=== PATIENT | male | born 2000 | race African-American/Black ===

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

== ENCOUNTER 2020-02-19 11:33 | Emergency (ER) | payer SELFPAY ==
--- NOTE | 2020-02-19 12:03 | RAD ---
Exam: XR Foot Rt 3 View STANDARD HISTORY: Injury to right foot. COMPARISON: None FINDINGS: No acute fracture, dislocation, or other acute osseous abnormality is identified. Dressing material overlies the dorsal lateral aspect right foot with minimal subcutaneous soft tissue swelling identified. No radiopaque foreign body is identified. IMPRESSION: No acute osseous abnormality is identified.
[2020-02-19] MEDS ORDERED: TETANUS, DIPHTHERIA TOX,ADULT (TDVAX) 0.5 ML VIAL IM ONE (12:04)
[2020-02-19] MEDS ORDERED: Lidocaine 1% (PF) 30 ML VIAL ONE (12:08)
[2020-02-19] MEDS ORDERED: Bacitracin 1 PK ONE (12:47)
== END 2020-02-19 13:25 | disposition home or self-care (01) ==
LOC: NAV ERS 11:33
DX: S91.311A Laceration without foreign body, right foot, initial encounter (principal); F17.290 Nicotine dependence, other tobacco product, uncomplicated; F90.9 Attention-deficit hyperactivity disorder, unspecified type; W22.8XXA Striking against or struck by other objects, initial encounter
CPT/HCPCS: 12002; 90471; J2001